=== PATIENT | male | born 1945 | race Caucasian/White ===

== ENCOUNTER 2019-05-01 12:46 | Outpatient (REF) | payer MEDICARE, BC, SELFPAY ==
[2019-05-01 21:17] LABS: HCT 45.2 % (40.0-50.0); HGB 15.4 g/dL (13.5-17.5); Mean Corp. HGB Concentration 34.1 g/dL (32.0-36.0); Mean Corpuscular Volume 91.1 fL (80-95); Mean Platelet Volume 9.5 fL (8.0-11.0); Platelet Count 251 x1000/uL (130-400); RBC 4.96 m/cumm (4.50-6.00); RBC Distribution Width 13.8 % (11.8-14.1); White Blood Cell Count 6.23 k/cumm (4.4-10.8)
[2019-05-01 21:43] LABS: Hemoglobin A1C 5.9 % (3.8-5.6)
[2019-05-01 22:16] LABS: ALT 38 U/L (16-63); AST 30 U/L (15-37); Alkaline Phosphatase 76 U/L (46-116); Anion Gap 9.7 mmol/L (3-11); BUN 16 mg/dL (7-18); Bilirubin, Total 0.8 mg/dL (0.2-1.0); CO2 26.3 mmol/L (21.0-32.0); CREATININE 0.93 mg/dL (0.70-1.30); Calcium 9.3 mg/dL (8.5-10.1); Chloride 103 mmol/L (98-107); Folate 18.5 ng/mL (8.6-20.0); Glucose 95 mg/dL (74-106); Potassium 4.6 mmol/L (3.5-5.1); Sodium 139 mmol/L (136-145); Vitamin B12 294 pg/mL (193-986)
[2019-05-04 12:30] LABS: Albumin 63.2 % (55.8-66.1); Total Protein 6.8 g/dL (6.3-8.2)
== END 2019-05-01 13:06 ==
LOC: NCHCN 12:46
PROVIDERS: PCP Internal Medicine; Visit Provider Internal Medicine
DX: F41.1 Generalized anxiety disorder (principal); G62.9 Polyneuropathy, unspecified; R73.09 Other abnormal glucose
CPT/HCPCS: 80053; 85027; 82607; 82746; 83036; 84165

== ENCOUNTER 2019-08-19 11:16 | Outpatient (CLI) | payer MEDICARE, BC, SELFPAY ==
--- NOTE | 2019-08-19 09:15 | DI.RAD_ITS ---
EXAM: XR KNEE RT 2V AP,LAT CLINICAL HISTORY: right knee pain TECHNIQUE: COMPARISON: CR RIGHT KNEE 3 VIEWS from 11/05/2012 FINDINGS: Two views were obtained. Cartilaginous joint spaces appear fairly well maintained. There is an appa rent loose joint body projected in the suprapatellar bursa. No bony abnormality seen. IMPRESSION:
== END 2019-08-19 11:36 ==
PROVIDERS: PCP Internal Medicine; Referring Provider Internal Medicine; Visit Provider Orthopaedic Surgery
DX: M25.561 Pain in right knee (principal); M23.41 Loose body in knee, right knee; M76.31 Iliotibial band syndrome, right leg
CPT/HCPCS: 99213; 73560

== ENCOUNTER → 2019-09-16 09:29 | Outpatient (BNVA) | payer MEDICARE, BC, SELFPAY | PROVIDERS: PCP Internal Medicine; Referring Provider Internal Medicine; Visit Provider Orthopaedic Surgery | DX: M25.561 Pain in right knee (principal); M76.31 Iliotibial band syndrome, right leg | CPT/HCPCS: 20610; 99213; J1040 ==

== ENCOUNTER → 2019-10-14 09:57 | Outpatient (BNVA) | payer MEDICARE, BC, SELFPAY | PROVIDERS: PCP Internal Medicine; Referring Provider Internal Medicine; Visit Provider Orthopaedic Surgery | DX: M25.561 Pain in right knee (principal); M76.31 Iliotibial band syndrome, right leg; Z98.890 Other specified postprocedural states | CPT/HCPCS: 99212; 99213 ==

== ENCOUNTER 2019-10-19 13:15 | Outpatient (REF) | payer MEDICARE, BC, SELFPAY | END 2019-10-19 13:35 | LOC: NCHCN 13:15 | PROVIDERS: PCP Internal Medicine; Visit Provider Internal Medicine | DX: R73.03 Prediabetes (principal) | CPT/HCPCS: 83036 ==

== ENCOUNTER 2020-01-13 16:53 | Outpatient (REF) | payer MEDICARE, BC, SELFPAY ==
[2020-01-19 06:28] LABS: SARS-CoV-2 RNA Undetected (Undetected); SARS-CoV-2 Specimen Source Nasal
== END 2020-01-13 17:13 ==
LOC: NCHCN 16:53
PROVIDERS: PCP Internal Medicine; Visit Provider Nurse Practitioner Family
DX: R05 Cough (principal)
CPT/HCPCS: U0003

== ENCOUNTER 2021-12-18 12:39 | Outpatient (REF) | payer MEDICARE, BC, SELFPAY ==
[2021-12-18 16:19] LABS: Anion Gap 8.9 mmol/L (3-11); BUN 16 mg/dL (7-18); CO2 27.1 mmol/L (21.0-32.0); Calcium 9.4 mg/dL (8.5-10.1); Chloride 102 mmol/L (98-107); Estimated GFR 77.04 (mL/min/1.73m2); Glucose 98 mg/dL (74-106); Potassium 4.7 mmol/L (3.5-5.1); Sodium 138 mmol/L (136-145)
[2021-12-18 16:43] LABS: Hemoglobin A1C 5.9 % (<5.7)
[2021-12-18 22:57] LABS: PSA, Screening 2.1 ng/mL (<=6.5)
== END 2021-12-18 12:40 | disposition home or self-care (01) ==
LOC: NCHCN 12:39
PROVIDERS: PCP Internal Medicine; Visit Provider Internal Medicine
DX: R73.03 Prediabetes (principal); E78.5 Hyperlipidemia, unspecified; K58.9 Irritable bowel syndrome, unspecified; F51.04 Psychophysiologic insomnia; Z12.5 Encounter for screening for malignant neoplasm of prostate; Z80.51 Family history of malignant neoplasm of kidney
CPT/HCPCS: 80048; 84153; 83036

== ENCOUNTER 2022-11-26 16:04 | Outpatient (REF) | payer MEDICARE, BC, SELFPAY ==
[2022-11-26 16:10] LABS: BUN 13 mg/dL (7-18); CREATININE 1.1 mg/dL (0.70-1.30); Calcium 9.3 mg/dL (8.5-10.1); Chloride 104 mmol/L (98-107); Estimated GFR 68.29 (mL/min/1.73m2); Glucose 93 mg/dL (74-106); Potassium 4.5 mmol/L (3.5-5.1); Sodium 139 mmol/L (136-145)
[2022-11-26 17:09] LABS: Hemoglobin A1C 5.8 % (<5.7)
== END 2022-11-26 16:05 | disposition home or self-care (01) ==
LOC: NCHCN 16:04
PROVIDERS: PCP Internal Medicine; Visit Provider Internal Medicine
DX: R73.03 Prediabetes (principal); E78.5 Hyperlipidemia, unspecified; R10.31 Right lower quadrant pain; K58.9 Irritable bowel syndrome, unspecified
CPT/HCPCS: 80048; 83036